=== PATIENT | female | born 1955 | race Caucasian/White ===

== ENCOUNTER 2017-01-19 10:56 | Emergency (ER) | payer SELFPAY ==
[~2017-01-19] VITALS: Ht 157.5 cm; Wt 60.0 kg
[~2017-01-19 10:56] MED LIST: ADDE30TA PO; CYMB30CA PO; GEOD80CA PO; HYOS0.129 PO; LEVO125T3 PO; LITH300 PO; LOVA20TA PO
[2017-01-19 11:00] VITALS: BP 143/92; PULSE 70; RESP 17; TEMP 98.2; O2SAT 99
[2017-01-19] MEDS ORDERED: SODIUM CHLOR 0.9% 1000 ML INJ 1,000 ML IV SCH (11:13)
[2017-01-19] MEDS ORDERED: ALUMINUM/MAGNESIUM/SIMETH 30 ML CUP PO ONE (11:15)
[2017-01-19] MEDS ORDERED: LIDOCAINE VISCOUS 2% SOLN 15 ML UDC PO ONE (11:15)
[2017-01-19] MEDS ORDERED: PANTOPRAZOLE SODIUM 40 MG VIAL IVP ONE (11:15)
[2017-01-19] MEDS ORDERED: ONDANSETRON HCL 4 MG/2 ML VIAL IVP ONE (11:15)
[2017-01-19] MEDS ORDERED: MORPHINE SULFATE 4 MG/ML INJ IV PUSH ONE (11:15)
[2017-01-19] MEDS ORDERED: SODIUM CHLORIDE 0.9% FLUSH 10 ML FLUSH IV FLUSH PRN (11:15)
[2017-01-19] MEDS ORDERED: GEOD80CA PO (11:17)
[2017-01-19] MEDS ORDERED: LOVA20TA PO (11:17)
[2017-01-19] MEDS ORDERED: LITH300C2 PO (11:17)
[2017-01-19] MEDS ORDERED: ADDE30TA PO (11:17)
[2017-01-19] MEDS ORDERED: CYMB60CA PO (11:17)
[2017-01-19] MEDS ORDERED: LEVO125T4 PO (11:17)
--- NOTE | 2017-01-19 11:26 | PD ---
HPI Chief Complaint: GI Complaint Time Seen by Provider: 11:08 Travel History International Travel<30 days: No Contact w/Intl Traveler<30days: No Traveled to known affect area: No History of Present Illness HPI Patient is a 61-year-old female who presents the emergency department with complaint of nausea, vomiting and generalized weakness. Patient states that she has been ill for 2-3 days with GI symptoms. She states that she has a history of a hiatal hernia with repair twice that has failed and her hiatal hernia has recurred. She notes a burning type pain in the epigastrium with associated nausea and intractable emesis for the last 2 days. She's not been able to keep anything down. Symptoms are consistent of her hiatal hernia, but typically do not last this long. Her abdominal pain has essentially resolved at this time and she describes it only as a "knot" in her stomach. She has been passing flatus, having bowel movements but no diarrhea. No fevers or chills. Patient is concerned that she may be dehydrated because when she stands she gets lightheaded, dizzy and presyncopal. She denies any hematemesis , hematochezia. She recently had endoscopy and colonoscopy by Dr. Smith that was reportedly normal per patient and . She has a history of "bacterial overgrowth" and IBS. PFSH Past Medical History ADHD: Yes Asthma: Yes ( A CHILD) Autoimmune Disease: No Bipolar Disorder: Yes Anxiety: Yes Depression: Yes Cancer: No Cardiovascular Problems: No High Cholesterol: Yes Diabetes: No Diminished Hearing: No Endocrine: No Gastrointestinal Disorders: Yes (reflux,hiatel hernia) GERD: Yes Genitourinary: No Hepatitis: No Hiatal Hernia: Yes (REPAIRED 2 TIMES) Hypertension: No Immune Disorder: No Implanted Vascular Access Dvce: No Medical other: Yes (reflux) Musculoskeletal: No Neurologic: No Psychiatric: Yes (BIPOLAR) Reproductive: No Respiratory: Yes (MILD COPD PER PT) Thyroid Disease: No Influenza Vaccination: Yes PNEUMOCCOCAL Vaccine (Year): 2 ?: Not Menopausal: Yes Past Surgical History Abdominal Surgery: Yes (hiatel hernia repair x2) Cholecystectomy: Yes Pacemaker: No Other Surgery: Yes (GALLBLADDER, HIATAL HERNIA) Social History Alcohol Use: No Tobacco Use: No Substance Use: No Allergies-Medications (Allergen,Severity, Reaction): Coded Allergies: Sulfa (Verified Allergy, Severe, HIVES, 4/22/17) Reported Meds & Prescriptions Reported Meds & Active Scripts Active Reported [place] Carbonate 300 Mg Cap 300 Mg PO DAILY Geodon (Ziprasidone) 80 Mg Cap 160 Mg PO HS Levothyroxine (Levothyroxine Sodium) 125 Mcg Tab 125 Mcg PO DAILY Lovastatin 20 Mg Tab 20 Mg PO HS Cymbalta DR (Duloxetine HCl) 60 Mg Capdr 60 Mg PO DAILY Adderall (Amphetamine-Dextroamphetamine) 30 Mg Tab 30 Mg PO DAILY Avoid late evening doses. Space doses at least 4 to 6 hours if more than once/day dosing. Review of Systems Except as stated in HPI: all other systems reviewed are Neg Physical Exam Narrative GENERAL: Middle-aged female. Appears sick, but not ill. SKIN: Focused skin assessment warm/dry. HEAD: Normocephalic. EYES: Pupils equal and round. No scleral icterus. No injection or drainage. ENT: No nasal bleeding or discharge. Mucous membranes dry NECK: Supple CARDIOVASCULAR: Regular rate and rhythm. No murmur appreciated. RESPIRATORY: No accessory muscle use. Clear to auscultation. Breath sounds equal bilaterally. GASTROINTESTINAL: Abdomen soft, minimal epigastric tenderness to palpation without rebound or guarding MUSCULOSKELETAL: Normal gait NEUROLOGICAL: Awake and alert. Motor grossly within normal limits. Normal speech. PSYCHIATRIC: Appropriate mood and affect; insight and judgment normal. Data Data Last Documented VS Vital Signs Date Time Temp Pulse Resp B/P Pulse Ox O2 Delivery O2 Flow Rate FiO2 01/19/17 12:24 64 18 165/81 97 Room Air 01/19/17 11:00 98.2 Orders Complete Blood Count With Diff (01/19/17 11:13) Comprehensive Metabolic Panel (01/19/17 11:13) Lipase (01/19/17 11:13) Iv Access Insert/Monitor (01/19/17 11:13) Ecg Monitoring (01/19/17 11:13) Oximetry (01/19/17 11:13) Morphine Inj (Morphine Inj) (01/19/17 11:15) Ondansetron Inj (Zofran Inj) (01/19/17 11:15) Pantoprazole Inj (Protonix Inj) (01/19/17 11:15) Sodium Chlor 0.9% 1000 Ml Inj (Ns 1000 M (01/19/17 11:13) Sodium Chloride 0.9% Flush (Ns Flush) (01/19/17 11:15) Electrocardiogram (01/19/17 11:13) Al-Mag Hy-Si 40-40-4 Mg/Ml Liq (Mag-Al P (01/19/17 11:15) Lidocaine 2% Viscous (Xylocaine 2% Visco (01/19/17 11:15) Sodium Chlor 0.9% 1000 Ml Inj (Ns 1000 M (01/19/17 11:30) Labs Laboratory Tests Test 01/19/17 11:15 White Blood Count 9.9 TH/MM3 Red Blood Count 5.07 MIL/MM3 Hemoglobin 13.0 GM/DL Hematocrit 40.7 % Mean Corpuscular Volume 80.4 FL Mean Corpuscular Hemoglobin 25.7 PG Mean Corpuscular Hemoglobin 32.0 % Concent Red Cell Distribution Width 16.5 % Platelet Count 361 TH/MM3 Mean Platelet Volume 7.7 FL Neutrophils (%) (Auto) 73.8 % Lymphocytes (%) (Auto) 16.3 % Monocytes (%) (Auto) 5.1 % Eosinophils (%) (Auto) 4.4 % Basophils (%) (Auto) 0.4 % Neutrophils # (Auto) 7.4 TH/MM3 Lymphocytes # (Auto) 1.6 TH/MM3 Monocytes # (Auto) 0.5 TH/MM3 Eosinophils # (Auto) 0.4 TH/MM3 Basophils # (Auto) 0.0 TH/MM3 CBC Comment DIFF FINAL Differential Comment Sodium Level 141 MEQ/L Potassium Level 3.7 MEQ/L Chloride Level 106 MEQ/L Carbon Dioxide Level 28.1 MEQ/L Anion Gap 7 MEQ/L Blood Urea Nitrogen 6 MG/DL Creatinine 0.92 MG/DL Estimat Glomerular Filtration 62 ML/MIN Rate Random Glucose 111 MG/DL Calcium Level 9.7 MG/DL Total Bilirubin 0.5 MG/DL Aspartate Amino Transf 21 U/L (AST/SGOT) Alanine Aminotransferase 25 U/L (ALT/SGPT) Alkaline Phosphatase 108 U/L Total Protein 7.7 GM/DL Albumin 3.5 GM/DL Lipase 292 U/L [facility] Medical Decision Making Medical Screen Exam Complete: Yes Emergency Medical Condition: Yes Medical Record Reviewed: Yes Differential Diagnosis 61-year-old female with history of hiatal hernia, IBS and "bacterial overgrowth " here with epigastric burning abdominal pain and intractable nausea vomiting 2 days with presyncope. Differential includes gastritis, peptic ulcer disease, hiatal hernia, pancreatitis, hepatobiliary pathology, dehydration, electrolyte abnormality, symptomatic anemia and less likely ACS, Boerhaave's. Narrative Course Patient placed on monitor, IV established and blood obtained. Twelve-lead EKG shows sinus rhythm with T-wave inversions in aVL only. No notable ST abnormalities, normal intervals. Patient was given 2 L normal saline bolus, 4 mg Zofran, 4 mg morphine, IV PPI and GI cocktail. CBC, CMP, lipase obtained and unremarkable. Patient felt improved after the above and was able to tolerate oral challenge. My suspicion is, gastritis made worse with her underlying hiatal hernia. Diagnosis Primary Impression: GERD (gastroesophageal reflux disease) Qualified Code: K21.0 - Gastroesophageal reflux disease with esophagitis Additional Impression: Nausea and vomiting Qualified Code: R11.2 - Non-intractable vomiting with nausea, unspecified vomiting type Referrals: Gary Smith MD as needed Additional Instructions: Nausea medications as needed. Antacid as prescribed. Follow-up with GI physician as discussed. Med/Other Pt SpecificInfo: Prescription(s) given Scripts Ondansetron Odt (Zofran Odt)8 Mg Tab8 Mg SL Q8H PRN (NAUSEA OR VOMITING) #10 TAB Ref 0 Prov:Sara Booker MD 01/19/17 Promethazine Supp (Phenergan Supp)25 Mg Supp25 Mg RECTAL Q6H PRN (NAUSEA OR VOMITING) #10 SUPP Ref 0 Prov:Sara Booker MD 01/19/17 Omeprazole 40 Mg Cap40 Mg PO DAILY #30 CAP Ref 0 Prov:Sara Booker MD 01/19/17 Disposition: 01 DISCHARGE HOME Condition: Stable Sara Booker MD Jan 19, 2017 11:26
[2017-01-19 11:28] VITALS: BP 143/98; PULSE 65; RESP 18; O2SAT 98
[2017-01-19 11:29] LABS: AUTOMATED NEUTROPHIL # 7.4 TH/MM3 (1.8-7.7); BASOPHIL % 0.4 % (0.0-2.0); EOSINOPHIL # 0.4 TH/MM3 (0-0.4); EOSINOPHIL % 4.4 % (0.0-4.0); HEMATOCRIT 40.7 % (35.0-46.0); HEMO FLAGS DIFF FINAL; LYMPH % 16.3 % (9.0-44.0); LYMPHOCYTE # 1.6 TH/MM3 (1.0-4.8); MEAN CELL VOLUME 80.4 FL (80.0-100.0); MEAN CORPUSCULAR HEMOGLOBIN 25.7 PG (27.0-34.0); MONO % 5.1 % (0.0-8.0); NEUT % 73.8 % (16.0-70.0); PLATELET COUNT 361 TH/MM3 (150-450); RED BLOOD COUNT 5.07 MIL/MM3 (4.00-5.30); RED CELL DISTRIBUTION WIDTH 16.5 % (11.6-17.2); WHITE BLOOD COUNT 9.9 TH/MM3 (4.0-11.0)
[2017-01-19] MEDS ORDERED: SODIUM CHLOR 0.9% 1000 ML INJ 1,000 ML IV ONE (11:30)
[2017-01-19 11:37] LABS: CHLORIDE 106 MEQ/L (98-107); POTASSIUM 3.7 MEQ/L (3.5-5.1); SODIUM (NA) 141 MEQ/L (136-145)
[2017-01-19 11:41] LABS: ANION GAP 7 MEQ/L (5-15); BICARBONATE 28.1 MEQ/L (21.0-32.0)
[2017-01-19 11:42] LABS: BLOOD UREA NITROGEN 6 MG/DL (7-18)
[2017-01-19 11:44] LABS: ALT (GPT) 25 U/L (10-53); AST (GOT) 21 U/L (15-37)
[2017-01-19 11:45] LABS: GLOMERULAR FILTRATION RATE 62 ML/MIN (>89)
[2017-01-19 11:46] LABS: TOTAL BILIRUBIN ADULT 0.5 MG/DL (0.2-1.0)
[2017-01-19 11:47] LABS: ALKALINE PHOSPHATASE 108 U/L (45-117)
[2017-01-19 12:24] VITALS: BP 165/81; PULSE 64; RESP 18; O2SAT 97
[2017-01-19] MEDS ORDERED: PROM1SUP7 RECTAL (13:03)
[2017-01-19] MEDS ORDERED: ZOFR8TAB4 SL (13:03)
[2017-01-19] MEDS ORDERED: OMEP40CA2 PO (13:03)
--- NOTE | 2017-01-20 13:30 | EKG ---
Date Performed: 01/19/2017 Time Performed: 11:18:20 PTAGE: 61 years EKG: Sinus rhythm Lateral T wave changes are nonspecific Compared to prior tracing no significant change Borderline EC G PREVIOUS TRACING : 10/23/2014 20.20 DOCTOR: Lorenzo Richards Interpretating Date/Time 01/20/2017 13:28:50
== END 2017-01-19 13:19 | disposition home or self-care (01) ==
LOC: PHED 10:56
DX: K21.0 Gastro-esophageal reflux disease with esophagitis (principal); R11.2 Nausea with vomiting, unspecified; E78.00 Pure hypercholesterolemia, unspecified; F41.8 Other specified anxiety disorders; F31.9 Bipolar disorder, unspecified
CPT/HCPCS: 80053; 83690; 85025; 93005; 96361; 96374; 96375; 99284; C9113; J2270; J2405; J7030

== ENCOUNTER 2017-01-19 23:55 | Emergency (ER) | payer SELFPAY ==
[~2017-01-19] VITALS: Ht 157.5 cm; Wt 67.5 kg
[~2017-01-19 23:55] MED LIST changes: +CYMB60CA PO; +LEVO125T4 PO; +LITH300C2 PO; +OMEP40CA2 PO; +PROM1SUP7 RECTAL; +ZOFR8TAB4 SL
[2017-01-20 00:02] VITALS: BP 150/85; PULSE 68; RESP 16; TEMP 98.4; O2SAT 96
--- NOTE | 2017-01-20 00:23 | PD ---
HPI Chief Complaint: GI Complaint Time Seen by Provider: 00:18 Travel History International Travel<30 days: No Contact w/Intl Traveler<30days: No Traveled to known affect area: No History of Present Illness HPI The patient is a 61-year-old female that complains of nausea, vomiting, epigastric pain for 2-3 days. She does have a history of gastroparesis, irritable bowel syndrome and GERD. She was recently scoped by Dr. Bernal and endoscopy apparently showed "bacterial overgrowth" and irritable bowel syndrome. She denies any melanotic or bloody stools. Her epigastric pain is burning pain in the midline epigastrium. She also has a history of hiatal hernia. She denies any diarrhea. She is passing gas. She denies any fever or chills. He states he feels somewhat dehydrated. She was seen earlier today on the , yesterday, and was given prescriptions for Prilosec and Zofran and Phenergan suppositories but did not get this medication filled. She comes in with the same symptoms she had yesterday. PFSH Past Medical History ADHD: Yes Asthma: Yes ( A CHILD) Autoimmune Disease: No Bipolar Disorder: Yes Anxiety: Yes Depression: Yes Cancer: No Cardiovascular Problems: No High Cholesterol: Yes Diabetes: No Diminished Hearing: No Endocrine: No Gastrointestinal Disorders: Yes (reflux,hiatel hernia) GERD: Yes Genitourinary: No Hepatitis: No Hiatal Hernia: Yes (REPAIRED 2 TIMES) Hypertension: No Immune Disorder: No Implanted Vascular Access Dvce: No Medical other: Yes (reflux) Musculoskeletal: No Neurologic: No Psychiatric: Yes (BIPOLAR) Reproductive: No Respiratory: Yes (MILD COPD PER PT) Thyroid Disease: No Influenza Vaccination: Yes PNEUMOCCOCAL Vaccine (Year): 2 ?: Not LMP: POST MENAPAUSAL Menopausal: Yes : 3 Para: 3 Past Surgical History Abdominal Surgery: Yes (hiatel hernia repair x2) Cholecystectomy: Yes Pacemaker: No Other Surgery: Yes (GALLBLADDER, HIATAL HERNIA) Social History Alcohol Use: No Tobacco Use: No Substance Use: No Allergies-Medications (Allergen,Severity, Reaction): Coded Allergies: Sulfa (Verified Allergy, Severe, HIVES, 01/19/17) Reported Meds & Prescriptions Reported Meds & Active Scripts Active Zofran Odt (Ondansetron Odt) 8 Mg Tab 8 Mg SL Q8H PRN Phenergan Supp (Promethazine HCl) 25 Mg Supp 25 Mg RECTAL Q6H PRN Omeprazole 40 Mg Cap 40 Mg PO DAILY Reported [place] Carbonate 300 Mg Cap 300 Mg PO DAILY Geodon (Ziprasidone) 80 Mg Cap 160 Mg PO HS Levothyroxine (Levothyroxine Sodium) 125 Mcg Tab 125 Mcg PO DAILY Lovastatin 20 Mg Tab 20 Mg PO HS Cymbalta DR (Duloxetine HCl) 60 Mg Capdr 60 Mg PO DAILY Adderall (Amphetamine-Dextroamphetamine) 30 Mg Tab 30 Mg PO DAILY Avoid late evening doses. Space doses at least 4 to 6 hours if more than once/day dosing. Review of Systems Except as stated in HPI: all other systems reviewed are Neg Physical Exam Narrative GENERAL: Slightly dehydrated-appearing, alert and oriented,, well-developed patient in moderate apparent distress with her midline epigastric discomfort. Her vital signs show blood pressure 150/85 but are otherwise normal.. SKIN: Focused skin assessment warm/dry. HEAD: Normocephalic. EYES: No scleral icterus. No injection or drainage. NECK: Supple, trachea midline. No JVD or lymphadenopathy. CARDIOVASCULAR: Regular rate and rhythm without murmurs, gallops, or rubs. RESPIRATORY: Breath sounds equal bilaterally. No accessory muscle use. GASTROINTESTINAL: Abdomen soft, with tenderness in the midline epigastrium to direct palpation, nondistended. No guarding or rebound is present. MUSCULOSKELETAL: No cyanosis, or edema. BACK: Nontender without obvious deformity. No CVA tenderness. Data Data Last Documented VS Vital Signs Date Time Temp Pulse Resp B/P Pulse Ox O2 Delivery O2 Flow Rate FiO2 01/20/17 01:00 62 16 170/88 95 Room Air 01/20/17 00:02 98.4 Orders Ondansetron Inj (Zofran Inj) (01/20/17 00:30) Sodium Chlor 0.9% 1000 Ml Inj (Ns 1000 M (01/20/17 00:30) Pantoprazole Inj (Protonix Inj) (01/20/17 00:30) Sodium Chlor 0.9% 1000 Ml Inj (Ns 1000 M (01/20/17 00:26) Famotidine Inj (Pepcid Inj) (01/20/17 00:30) Ondansetron Inj (Zofran Inj) (01/20/17 01:45) [facility] Medical Decision Making Medical Screen Exam Complete: Yes Emergency Medical Condition: Yes Medical Record Reviewed: Yes Differential Diagnosis Gastritis, GERD, dehydration, ulcer painunlikely, gastroparesis, irritable bowel syndrome Narrative Course It is now 0134 and the patient has slight nausea although she does feel better. 2 L of fluid have now been infused. It is now 0-17 and the patient feels much better and wants to go home. She has urinated. Impression: Gastroenteritis Plan: The patient is to get her prescriptions filled and follow-up with her primary care physician later this week. She is to drink clear liquids for the first day or 2. Avoid fatty foods. Diagnosis Primary Impression: Gastroenteritis Additional Instructions: As we discussed, stay away from fatty foods. For the first 24 hours drink only clear liquids like Gatorade, water, crackers and Jell-O. Then you can take soups and fruit juices. Stay away from apple juice because this could make the diarrhea worse. Disposition: 01 DISCHARGE HOME Condition: Stable Gregg Lynch MD Jan 20, 2017 00:23
[2017-01-20] MEDS ORDERED: SODIUM CHLOR 0.9% 1000 ML INJ 1,000 ML IV SCH ×2 (00:26→00:30)
[2017-01-20] MEDS ORDERED: FAMOTIDINE 20 MG/2 ML VIAL IV PUSH ONE (00:30)
[2017-01-20] MEDS ORDERED: PANTOPRAZOLE SODIUM 40 MG VIAL IVP ONE (00:30)
[2017-01-20] MEDS ORDERED: ONDANSETRON HCL 4 MG/2 ML VIAL IV ONE ×2 (00:30→01:45)
[2017-01-20 01:00] VITALS: BP 170/88; PULSE 62; RESP 16; O2SAT 95
[2017-01-20 02:00] VITALS: BP 143/73; PULSE 64; RESP 16; O2SAT 97
[2017-01-20] MEDS ORDERED: PROCHLORPERAZINE INJ 10 MG/2 ML VIAL IM ONE (02:45)
[2017-01-20 03:00] VITALS: BP 164/83; PULSE 63; RESP 16; O2SAT 95
[2017-01-20] MEDS ORDERED: PROCHLORPERAZINE INJ 10 MG/2 ML VIAL IV PUSH ONE (03:00)
[2017-01-20 04:00] VITALS: BP 131/70; PULSE 69; RESP 16; O2SAT 97
[2017-01-20 04:20] VITALS: O2SAT 95
== END 2017-01-20 04:27 | disposition home or self-care (01) ==
LOC: PHED 23:55
DX: K52.9 Noninfective gastroenteritis and colitis, unspecified (principal); F31.9 Bipolar disorder, unspecified; E78.00 Pure hypercholesterolemia, unspecified; F41.8 Other specified anxiety disorders
CPT/HCPCS: 96361; 96374; 96375; 96376; 99283; C9113; J0780; J2405; J7030

== ENCOUNTER 2017-11-02 21:31 | Emergency (ER) | payer SELFPAY ==
[~2017-11-02] VITALS: Ht 157.5 cm; Wt 73.4 kg
[~2017-11-02 21:31] MED LIST changes: -CYMB30CA PO; -HYOS0.129 PO; -LEVO125T3 PO; -LITH300 PO
[2017-11-02 21:37] VITALS: BP 142/63; PULSE 82; RESP 20; TEMP 98.2; O2SAT 96
--- NOTE | 2017-11-02 22:12 | PD ---
HPI Chief Complaint: General Weakness Time Seen by Provider: 21:45 Travel History International Travel<30 days: No Contact w/Intl Traveler<30days: No Traveled to known affect area: No History of Present Illness HPI The patient is a 61-year-old female with a history of iron deficiency anemia who complains of weakness and lightheadedness for several weeks. She is also had a mild, nonproductive cough for the last 2 days. 4 months ago her hemoglobin dropped to 9. She is a [employer] and does not want blood. She also takes lithium and Adderall as well as Geodon. PFSH Past Medical History ADHD: Yes Asthma: Yes ( A CHILD) Autoimmune Disease: No Bipolar Disorder: Yes Anxiety: Yes Depression: Yes Cancer: No Cardiovascular Problems: No High Cholesterol: Yes Diabetes: No Diminished Hearing: No Endocrine: No Gastrointestinal Disorders: Yes (reflux,hiatel hernia) GERD: Yes Genitourinary: No Hepatitis: No Hiatal Hernia: Yes (REPAIRED 2 TIMES) Hypertension: No Immune Disorder: No Implanted Vascular Access Dvce: No Musculoskeletal: No Neurologic: No Psychiatric: Yes (BIPOLAR) Reproductive: No Respiratory: Yes (MILD COPD PER PT) Thyroid Disease: No PNEUMOCCOCAL Vaccine (Year): 2 ?: Not Menopausal: Yes : 3 Para: 3 Past Surgical History Abdominal Surgery: Yes (hiatel hernia repair x2) Cholecystectomy: Yes Pacemaker: No Other Surgery: Yes (GALLBLADDER, HIATAL HERNIA) Social History Alcohol Use: No Tobacco Use: No Substance Use: No Allergies-Medications (Allergen,Severity, Reaction): Coded Allergies: Sulfa (Sulfonamide Antibiotics) (Unverified Allergy, Severe, HIVES, 11/02/17 ) Reported Meds & Prescriptions Reported Meds & Active Scripts Active Reported [place] Carbonate 300 Mg Cap 300 Mg PO DAILY Geodon (Ziprasidone) 80 Mg Cap 160 Mg PO HS Levothyroxine (Levothyroxine Sodium) 125 Mcg Tab 125 Mcg PO DAILY Lovastatin 20 Mg Tab 20 Mg PO HS Cymbalta DR (Duloxetine HCl) 60 Mg Capdr 60 Mg PO DAILY Adderall (Amphetamine-Dextroamphetamine) 30 Mg Tab 30 Mg PO DAILY Avoid late evening doses. Space doses at least 4 to 6 hours if more than once/day dosing. Review of Systems Except as stated in HPI: all other systems reviewed are Neg Physical Exam Narrative GENERAL: The patient is alert, oriented 3 in no respiratory distress. Her vital signs are normal. SKIN: Focused skin assessment warm/dry. HEAD: Atraumatic. Normocephalic. EYES: Pupils equal and round. No scleral icterus. No injection or drainage. ENT: No nasal bleeding or discharge. Mucous membranes pink and moist. NECK: Trachea midline. No JVD. CARDIOVASCULAR: Regular rate and rhythm. No murmur appreciated. RESPIRATORY: No accessory muscle use. Clear to auscultation. Breath sounds equal bilaterally. GASTROINTESTINAL: Abdomen soft, non-tender, nondistended. Hepatic and splenic margins not palpable. MUSCULOSKELETAL: No obvious deformities. No clubbing. No cyanosis. No edema. NEUROLOGICAL: Awake and alert. No obvious cranial nerve deficits. Motor grossly within normal limits. Normal speech. PSYCHIATRIC: Appropriate mood and affect; insight and judgment normal. Data Data Last Documented VS Vital Signs Date Time Temp Pulse Resp B/P (MAP) Pulse Ox O2 Delivery O2 Flow Rate FiO2 11/02/17 22:09 Room Air 11/02/17 21:37 98.2 82 20 142/63 (89) 96 Orders Orders Serum Total Iron (Fe) (11/02/17 22:07) Complete Blood Count With Diff (11/02/17 22:07) Comprehensive Metabolic Panel (11/02/17 22:07) Urinalysis - C+S If Indicated (11/02/17 22:07) Magnesium (Mg) (11/02/17 22:07) [place] (Li) (11/02/17 22:07) Urine Culture (11/02/17 22:28) Ed Discharge Order (11/03/17 00:21) Labs Laboratory Tests Test 11/02/17 22:28 White Blood Count 10.6 TH/MM3 Red Blood Count 4.77 MIL/MM3 Hemoglobin 9.7 GM/DL Hematocrit 32.7 % Mean Corpuscular Volume 68.7 FL Mean Corpuscular Hemoglobin 20.4 PG Mean Corpuscular Hemoglobin Concent 29.7 % Red Cell Distribution Width 19.0 % Platelet Count 420 TH/MM3 Mean Platelet Volume 7.8 FL Neutrophils (%) (Auto) 70.7 % Lymphocytes (%) (Auto) 19.1 % Monocytes (%) (Auto) 5.5 % Eosinophils (%) (Auto) 4.3 % Basophils (%) (Auto) 0.4 % Neutrophils # (Auto) 7.5 TH/MM3 Lymphocytes # (Auto) 2.0 TH/MM3 Monocytes # (Auto) 0.6 TH/MM3 Eosinophils # (Auto) 0.5 TH/MM3 Basophils # (Auto) 0.0 TH/MM3 CBC Comment AUTO DIFF Differential Comment AUTO DIFF CONFIRMED Platelet Estimate NORMAL Platelet Morphology Comment NORMAL Target Cells 1+ Ovalocytes 1+ Urine Color YELLOW Urine Turbidity CLEAR Urine pH 6.5 Urine Specific [place] 1.020 Urine Protein NEG mg/dL Urine Glucose (UA) NEG mg/dL Urine Ketones NEG mg/dL Urine Occult Blood NEG Urine Nitrite NEG Urine Bilirubin NEG Urine Leukocyte Esterase MOD Urine RBC 0-2 /hpf Urine WBC 15-19 /hpf Urine Squamous Epithelial Cells 6-8 /hpf Urine Bacteria FEW /hpf Microscopic Urinalysis Comment CULTURE INDICATED Blood Urea Nitrogen 10 MG/DL Creatinine 1.10 MG/DL Random Glucose 124 MG/DL Total Protein 7.7 GM/DL Albumin 3.4 GM/DL Calcium Level 8.9 MG/DL Magnesium Level 2.4 MG/DL Alkaline Phosphatase 100 U/L Aspartate Amino Transf (AST/SGOT) 20 U/L [place]ine Aminotransferase (ALT/SGPT) 17 U/L Total Bilirubin 0.3 MG/DL Sodium Level 139 MEQ/L Potassium Level 3.9 MEQ/L Chloride Level 108 MEQ/L Carbon Dioxide Level 27.5 MEQ/L Anion Gap 4 MEQ/L Estimat Glomerular Filtration Rate 51 ML/MIN Iron Level 27 MCG/DL [place] Level 1.1 MEQ/L MDM Medical Decision Making Medical Screen Exam Complete: Yes Emergency Medical Condition: Yes Medical Record Reviewed: Yes Interpretation(s) The complete metabolic profile shows a creatinine of 1.1, GFR 50 with an anion gap of 4 but is otherwise unremarkable. The iron level is 27. The CBC shows a hemoglobin of 9.7 and hematocrit of 32.7. The MCV, MCH and MCHC all show iron deficiency type anemia. The urinalysis shows moderate leukocyte esterase with 15-19 white cells and few bacteria and culture is indicated. The lithium level is 1.1. Differential Diagnosis Anemia, urinary tract infection, electrolyte disorder, hypo-/hyperglycemia, renal insufficiency Narrative Course The patient has a urinary tract infection. She was given Macrobid 100 mg twice daily for 10 days. She needs to follow-up with her primary care physician as scheduled next week. Diagnosis Primary Impression: Urinary tract infection Additional Impression: Generalized weakness Additional Instructions: Drink plenty of liquids. It is important not only to stay well-hydrated when you have an infection but with a urine infection you need to establish a good urine flow through your kidneys. Follow up as scheduled with your primary care physician. The antibiotic is one tablet twice daily for 10 days. Med/Other Pt SpecificInfo: Prescription(s) given Scripts Nitrofurantoin Monohydrate Macrocrystals (Macrobid) 100 Mg Cap 100 MG PO BID for Infection for 10 Days, #20 CAP 0 Refills Prov: Gregg Lynch MD 11/03/17 Disposition: 01 DISCHARGE HOME Condition: Stable Gregg Lynch MD Nov 02, 2017 22:12
[2017-11-02 22:37] LABS: AUTOMATED NEUTROPHIL # 7.5 TH/MM3 (1.8-7.7); BASOPHIL % 0.4 % (0.0-2.0); EOSINOPHIL # 0.5 TH/MM3 (0-0.4); EOSINOPHIL % 4.3 % (0.0-4.0); HEMATOCRIT 32.7 % (35.0-46.0); HEMOGLOBIN 9.7 GM/DL (11.6-15.3); LYMPH % 19.1 % (9.0-44.0); MEAN CELL VOLUME 68.7 FL (80.0-100.0); MEAN CORPUSCULAR HEMOGLOBIN 20.4 PG (27.0-34.0); MEAN PLATELET VOLUME 7.8 FL (7.0-11.0); MONO % 5.5 % (0.0-8.0); MONOCYTE # 0.6 TH/MM3 (0-0.9); NEUT % 70.7 % (16.0-70.0); PLATELET COUNT 420 TH/MM3 (150-450); RED BLOOD COUNT 4.77 MIL/MM3 (4.00-5.30); WHITE BLOOD COUNT 10.6 TH/MM3 (4.0-11.0)
[2017-11-02 22:38] LABS: BILIRUBIN, URINE NEG (NEG); BLOOD, URINE NEG (NEG); GLUCOSE,URINE NEG (NEG); KETONE, URINE NEG (NEG); NITRITE,URINE NEG (NEG); PH, URINE 6.5 (5.0-8.5); URINE LEUKOCYTE ESTERASE MOD (NEG)
[2017-11-02 22:44] LABS: MEAN CORPUSCULAR HGB CONC 29.7 % (32.0-36.0)
[2017-11-02 22:46] LABS: CHLORIDE 108 MEQ/L (98-107); SODIUM (NA) 139 MEQ/L (136-145)
[2017-11-02 22:50] LABS: ALBUMIN 3.4 GM/DL (3.4-5.0); BICARBONATE 27.5 MEQ/L (21.0-32.0); BLOOD UREA NITROGEN 10 MG/DL (7-18); CALCIUM 8.9 MG/DL (8.5-10.1); GLUCOSE,RANDOM 124 MG/DL (74-106); MAGNESIUM 2.4 MG/DL (1.5-2.5)
[2017-11-02 22:53] LABS: ALT (GPT) 17 U/L (10-53); AST (GOT) 20 U/L (15-37); GLOMERULAR FILTRATION RATE 51 ML/MIN (>89)
[2017-11-02 22:55] LABS: TOTAL BILIRUBIN ADULT 0.3 MG/DL (0.2-1.0); TOTAL PROTEIN 7.7 GM/DL (6.4-8.2)
[2017-11-02 22:56] LABS: ALKALINE PHOSPHATASE 100 U/L (45-117)
[2017-11-02 22:58] LABS: BACTERIA, URINE FEW /hpf; RBC, URINE 0-2 /hpf (0-3); URINE COLOR YELLOW (YELLW/STRAW); WBC, URINE 15-19 /hpf (0-5)
[2017-11-02 23:08] LABS: OVALOCYTES 1+ (NORMAL); TARGET CELLS 1+ (NORMAL)
[2017-11-02 23:25] VITALS: BP 145/78; PULSE 76; RESP 16; O2SAT 98
[2017-11-03 00:06] LABS: IRON (FE) 27 MCG/DL (50-170)
[2017-11-03] MEDS ORDERED: MACR100C2 PO (00:29)
[2017-11-03] MEDS ORDERED: NITROFURANTOIN MONOHYD MACROCR 100 MG CAP PO ONE ×2 (00:30→00:45)
[2017-11-03] MEDS ORDERED: LORazepam 2 MG/ML VIAL IV PUSH ONE (01:00)
[2017-11-03 01:05] VITALS: BP 138/72
== END 2017-11-03 01:08 | disposition home or self-care (01) ==
LOC: PHED 21:31
DX: N39.0 Urinary tract infection, site not specified (principal); R53.1 Weakness; D50.9 Iron deficiency anemia, unspecified; R42 Dizziness and giddiness; R05 Cough; F90.9 Attention-deficit hyperactivity disorder, unspecified type; J45.909 Unspecified asthma, uncomplicated; F31.9 Bipolar disorder, unspecified; F41.9 Anxiety disorder, unspecified
CPT/HCPCS: 80053; 80178; 81001; 83540; 83735; 85025; 87086; 96374